=== PATIENT | female | born 1970 | race Asian ===

== ENCOUNTER 2017-03-04 06:54 | Day surgery (SDC) | payer BC ==
[~2017-03-04] VITALS: Ht 162.6 cm; Wt 64.0 kg
[2017-03-04] VITALS (27 sets, daily range): BP systolic 84–112; BP diastolic 39–82; PULSE 74–94; RESP 16–20; Ht 162.6 cm; Wt 64.0 kg
[2017-03-04] MEDS ORDERED: DULO60CA59 PO (07:56)
[2017-03-04] MEDS ORDERED: ALPR0.5T6 PO ×2 (07:56→08:21)
[2017-03-04] MEDS ORDERED: RANI150T5 PO (07:56)
[2017-03-04] MEDS ORDERED: LYRI200 PO (08:21)
--- NOTE | 2017-03-04 12:45 | HPN ---
Date/Time of Note Date/Time of Note DATE: 03/04/17 TIME: 12:44 Interval H&P Admission Note Pt. seen H&P reviewed: No system changes LEONORA NAPOLES MD Mar 04, 2017 12:45
[2017-03-04] MEDS ORDERED: NEOSTIGMINE 3 MG/3 ML SYRINGE ONE (12:46)
[2017-03-04] MEDS ORDERED: MEPERIDINE 100 MG INJ ONE (12:46)
[2017-03-04] MEDS ORDERED: ROCURONIUM 50 MG INJ ONE (12:46)
[2017-03-04] MEDS ORDERED: SUCCINYLCHOLINE CHLORIDE 100 MG/5 ML SYG IV ONE (12:46)
[2017-03-04] MEDS ORDERED: GLYCOPYRROLATE 1 MG INJ ONE ×2 (12:46→13:30)
[2017-03-04] MEDS ORDERED: LIDOCAINE 2% (SDV) 5 ML INJ ONE (12:46)
[2017-03-04] MEDS ORDERED: PROPOFOL 20 ML ONE (12:46)
[2017-03-04] MEDS ORDERED: ONDANSETRON 4 MG INJ ONE (13:30)
[2017-03-04] MEDS ORDERED: hydrALAzine 20 MG INJ IV PRN (13:30)
[2017-03-04] MEDS ORDERED: ONDANSETRON 4 MG INJ IV PRN (13:30)
[2017-03-04] MEDS ORDERED: METOCLOPRAMIDE 10 MG INJ ONE (13:30)
[2017-03-04] MEDS ORDERED: EPHEDrine SULFATE 50 MG/5 ML SYG IV PRN (13:30)
[2017-03-04] MEDS ORDERED: OXYCODONE/ACETAMINOPHEN (5/325) TAB PO PRN ×2 (13:30)
[2017-03-04] MEDS ORDERED: DIPHENHYDRAMINE 50 MG INJ IV PRN (13:30)
[2017-03-04] MEDS ORDERED: MEPERIDINE 25 MG INJ IV PRN (13:30)
[2017-03-04] MEDS ORDERED: METOCLOPRAMIDE 10 MG INJ IV PRN (13:30)
[2017-03-04] MEDS ORDERED: MIDAZOLAM 1 MG/ML 2 ML INJ IV PRN (13:30)
[2017-03-04] MEDS ORDERED: HYDROmorphONE (0.2 MG/ML) 10ML SYG IV PRN ×3 (13:30)
[2017-03-04] MEDS ORDERED: LABETALOL HCL 20MG INJ IV PRN (13:30)
[2017-03-04] MEDS ORDERED: FENTAnyl 50 MCG/ML VIAL IV PRN ×3 (13:30)
[2017-03-04] MEDS ORDERED: BUPIVACAINE 0.5% (SDV) 30 ML INJ ONE (13:31)
--- NOTE | 2017-03-04 13:56 | SIPON ---
Date/Time of Note Date/Time of Note DATE: 03/04/17 TIME: 13:53 Operative Report Free Text/Dictation BILATERAL PARAOVARIAN CYST MULTIPLE PELVIC PAIN Preoperative Diagnosis PARAOVARIAN CYST BILATERAL Postoperative Diagnosis SAME SEE PATHOLOGIC REPORT Operation/Procedure Performed BILATERAL SALPHINGECTOMY Surgeon: LEONORA NAPOLES MD Anesthesia Type: general Estimated Blood Loss: 0 - 10 ml's Specimens BILATERAL FOLLOPIAN CYST Grafts/Implants: none Grafts/Implants NONE Complications: no LEONORA NAPOLES MD Mar 04, 2017 13:56
--- NOTE | 2017-03-04 13:58 | PD.PPDC ---
INSPECTOR PROCESS Discharge Instruction Diagnosis Final Diagnosis: BILATERAL PMULTIPLE PARAOVARIAN CYSTS Condition Patient Condition: Stable Diet Diet: Resume Regular Diet Activity/Restrictions Activity: May Shower Restrictions: No Exercising No Lifting Minimize Stair-climbing No Sexual Activity Nothing in the Vagina No [place] No Tampons, douche Wound/Drain Care Instructions Wound/Drain Care Instructions: Wash with soap and water Keep clean and dry Follow-up Follow-up with Physician: 2, Week/Weeks Return to clinic for [facility]ERMAN Instructions: Fever greater than 101 Chills Worsening abdominal pain Excessive Vaginal Bleeding More than 2 pads per hour Unable to tolerate diet OB Instructions: Blurried Vision Headache Surgical Instructions: Incisional Drainage Incisional Redness LEONORA NAPOLES MD Mar 04, 2017 13:58
--- NOTE | 2017-03-04 22:04 | OPR ---
DATE OF OPERATION: 03/04/2017 PREOPERATIVE DIAGNOSIS: Multiple paraovarian cysts, bilateral. POSTOPERATIVE DIAGNOSIS: Multiple paraovarian cysts, bilateral. OPERATION PERFORMED: Bilateral salpingectomy. ANESTHESIA: General. ANESTHESIOLOGIST: Dr. Bolivar. SURGEON: Aurelia Huggins MD OPERATIVE PROCEDURE: Under appropriate induction of general anesthesia, patient was placed on the frog position. Romo catheter was introduced into the bladder under sterile conditions, repositioned to supine. Abdominal wall was prepped and draped in usual aseptic manner. A transverse incision was made along the previous incisional scar. Scar tissue was excised. Incision was carried down through the subcutaneous tissue to the anterior rectus fascia, which was incised transversely the length of the incision. Two Rosette clamps applied on the fascial edge, thus creating the fascial flap by blunt and sharp dissection of tendinous attachment upward and downward, and 2 rectus muscles split in the midline. Peritoneal cavity was entered digitally. Pelvic organs were explored, and the left fallopian tube was identified, with existing multiple small paraovarian cysts on the mesosalpinx. On the right side, the same thing, which cystic size was bigger, but there were multiple paraovarian cysts noted. The uterus appeared to be normal on palpation. Both ovaries appeared to be normal. Left fallopian tube was grasped with a Pean , clamped on the distal portion of the fallopian tube, and this was excised, and the pedicle was ligated with 0 plain, which was doubly ligated. No bleeding was noted. In the right side, the fallopian tube was also clamped with a Pean, and this distal part of the fallopian tube, which has multiple paraovarian cysts was excised, and the pedicle was doubly ligated with 0 plain. No bleeding was noted. Procedure completed, and lap count was correct. The parietal peritoneum was closed using 0 chromic catgut, and the muscle closed with 0 chromic catgut in continuous manner. The fascia closed with #1 Vicryl in continuous manner in 2 segments. The subcutaneous tissue was irrigated with water. This layer was approximated with 2-0 plain in continuous manner after the adequate hemostasis was secured. Skin closed with Insorb, and Steri-Strips applied, a pressure dressing applied. Estimated blood loss less than 10 cc. Patient withstood procedure well, sent to recovery room in stable condition. Dictated By: Aurelia Huggins MD /fnt/caw /Document#: [id number]
== END 2017-03-04 16:32 | disposition home or self-care (01) ==
LOC: SDS 06:54
PROVIDERS: ATTEND Obstetrics & Gynecology
DX: N83.202 Unspecified ovarian cyst, left side (principal); N83.201 Unspecified ovarian cyst, right side; F41.8 Other specified anxiety disorders
CPT/HCPCS: 58700; 84703; 88302; J1170; J2175; J2405; J2710; J2765; Z7512; Z7610; J7999

== ENCOUNTER 2017-04-12 05:33 | Day surgery (SDC) | payer BC ==
[2017-04-09 14:04] VITALS: BMI 24.2
[~2017-04-12] VITALS: Ht 162.6 cm; Wt 63.7 kg
[2017-04-12] VITALS (13 sets, daily range): BP systolic 93–111; BP diastolic 55–67; PULSE 72–86; RESP 17–18; Ht 162.6 cm; Wt 63.7 kg
[~2017-04-12 05:33] MED LIST: ALPR0.5T6 PO; DULO60CA59 PO; LYRI200 PO; RANI150T5 PO
[2017-04-12] MEDS ORDERED: LORA0.5T PO (06:43)
--- NOTE | 2017-04-12 07:16 | HPN ---
Date/Time of Note Date/Time of Note DATE: 04/12/17 TIME: 07:16 Interval H&P Admission Note Pt. seen H&P reviewed: No system changes KOFI FRANCO DPM Apr 12, 2017 07:16
[2017-04-12] MEDS ORDERED: DEXAMETHASONE 4 MG/ML 1 ML INJ ONE (07:27)
[2017-04-12] MEDS ORDERED: LIDOCAINE 1% (MPF) 30 ML INJ ONE (07:27)
[2017-04-12] MEDS ORDERED: BUPIVACAINE 0.5% (SDV) 30 ML INJ ONE (07:27)
[2017-04-12] MEDS ORDERED: LIDOCAINE 2% (SDV) 5 ML INJ ONE (07:34)
[2017-04-12] MEDS ORDERED: PROPOFOL 20 ML ONE ×2 (07:34→08:21)
[2017-04-12] MEDS ORDERED: MIDAZOLAM 1 MG/ML 2 ML INJ ONE (07:34)
[2017-04-12] MEDS ORDERED: FENTAnyl 50 MCG/ML VIAL ONE (07:35)
[2017-04-12] MEDS ORDERED: ONDANSETRON 4 MG INJ IV PRN (08:00)
[2017-04-12] MEDS ORDERED: FENTAnyl 50 MCG/ML VIAL IV PRN ×3 (08:00)
[2017-04-12] MEDS ORDERED: MEPERIDINE 25 MG INJ IV PRN (08:00)
[2017-04-12] MEDS ORDERED: PROCHLORPERAZINE 10 MG INJ IV PRN (08:00)
[2017-04-12] MEDS ORDERED: HYDROmorphONE (0.2 MG/ML) 10ML SYG IV PRN ×3 (08:00)
[2017-04-12] MEDS ORDERED: DIPHENHYDRAMINE 50 MG INJ IV PRN (08:00)
[2017-04-12] MEDS ORDERED: OXYCODONE/ACETAMINOPHEN (5/325) TAB PO PRN (08:00)
[2017-04-12] MEDS ORDERED: EPHEDrine SULFATE 50 MG/5 ML SYG ONE (08:20)
--- NOTE | 2017-04-12 08:32 | SIPON ---
Date/Time of Note Date/Time of Note DATE: 04/12/17 TIME: 08:30 Operative Report Preoperative Diagnosis bunion right foot Postoperative Diagnosis same Operation/Procedure Performed bunionectomy Surgeon see signature line insurance account assistant none Anesthesia: MAC Estimated blood loss: none Transfusion Required none Specimen none Grafts/Implants none Complications none KOFI FRANCO DPM Apr 12, 2017 08:32
[2017-04-12] MEDS ORDERED: CEFAZOLIN 1 GM INJ ONE (09:12)
--- NOTE | 2017-04-12 11:22 | OPR ---
DATE OF OPERATION: PREOPERATIVE DIAGNOSIS: Bunion deformity, right foot. POSTOPERATIVE DIAGNOSIS: Bunion deformity, right foot. NAME OF OPERATION: Bunionectomy, right foot. DESCRIPTION OF PROCEDURE: The patient was brought to the OR and placed in the supine position on th e operating room table. Anesthesia was achieved using MAC and local for 18 mL of Xylocaine 1% plain . The ankle was then wrapped several times with Webril and tourniquet was placed over the Webril. Next, the foot was prepped and draped in the usual sterile fashion and tourniquet was inflated to 25 0 mmHg. Attention was then directed over the first MPJ right foot. A 4 cm linear incision was made over the first MPJ dorsally. Incision was deepened in the same plane using sharp and blunt dissection. Att ention was directed to the neurovascular structure and retracted from the site. Next, a 2 cm semiel liptical incision was made at the capsule. The head of the first metatarsal bone was released from surrounding soft tissues medially. Then, the head was resected in toto using power saw. Next, atte ntion was directed to the first interspace where a stab incision was made at the capsular layer. Th e fibular sesamoid was identified and released from surrounding tissues. An adductor tendon was rel eased. The surgical site was then flushed with normal saline and capsular closure was obtained using 3-0 Vi cryl, subcutaneous closure using 4-0 Vicryl, and skin closure using destiny. Postop injection of 4 mL of 0.5% Marcaine plain and 1 mL of Decadron was infiltrated at the surgical site. Next, surgical site was covered with Adaptic, 4 x 4s and current Kerlix in a compressive fashion. Next, the tourn iquet was deflated and immediate capillary refill was observed to all digits of the right foot. The patient tolerated anesthesia and procedure well and left the OR for recovery room with vital signs stable and neurovascular status intact. The patient was given oral and written postop instructions. PLAN: We will follow up at the office for a first initial postop visit in 2 days. Dictated By: KOFI BAZAN/DEZ Conf#: [id number] DID#: [id number]
== END 2017-04-12 10:36 | disposition home or self-care (01) ==
LOC: SDS 05:33
PROVIDERS: ATTEND Podiatrist
DX: M21.611 Bunion of right foot (principal)
CPT/HCPCS: 28296; J0690; J1100; J2250; J3010; Z7512; Z7610